=== PATIENT | female | born 1995 | race Caucasian/White ===

== ENCOUNTER 2016-08-07 11:05 | Emergency (ER) | payer MEDICAID ==
[2016-08-07] MEDS ORDERED: MORPHINE 4 MG/ML SYR ONE (11:50)
[2016-08-07] MEDS ORDERED: SODIUM CHLORIDE 0.9% 1,000 ML ONE (11:50)
== END 2016-08-07 14:43 | disposition home or self-care (01) ==
LOC: ER 11:05
DX: R51 Headache (principal)
CPT/HCPCS: 36415; 80053; 81003; 84702; 85025; 96361; 96372; 96374